=== PATIENT | male | born 1940 | race Caucasian/White ===

== ENCOUNTER 2023-01-22 14:50 | Emergency (ER) | payer MEDICARE ==
[~2023-01-22] VITALS: Ht 172.7 cm; Wt 72.6 kg
[2023-01-22 14:56] VITALS: BP_SYST 131
[2023-01-22] MEDS ORDERED: guaiFENesin/DEXTROMETHORPHAN 10 ML UDC PO ONE (15:00)
[2023-01-22 15:34] LABS: BASOPHILS % (AUTO) 0.2 % (0.0-2.0); HEMATOCRIT 41.8 % (36-54); HEMOGLOBIN 14.1 g/dL (14.0-18.0); LYMPHOCYTES # (AUTO) 0.3 K/uL (1.0-5.5); MEAN CORPUSCULAR HEMOGLOBIN 29 pg (27-31); MEAN CORPUSCULAR HGB CONC 34 % (32-36); MEAN CORPUSCULAR VOLUME 87 fL (79.0-98.0); MONOCYTES # (AUTO) 0.4 K/uL (0.0-1.0); MONOCYTES % (AUTO) 9.2 % (1.7-9.3); NEUTROPHILS # (AUTO) 3.2 K/uL (1.8-7.7); NEUTROPHILS % (AUTO) 82.6 % (40.0-70.0); PLATELET COUNT (AUTO) 114 K/uL (130-430); RED CELL DISTRIBUTION WIDTH 13.1 % (9.0-15.0); WHITE BLOOD COUNT (AUTO) 3.9 K/uL (4.8-10.8)
[2023-01-22 15:41] LABS: ANION GAP 5 (5-15); CALCIUM 7.8 mg/dL (8.4-11.0); CHLORIDE 96 mmol/L (98-107); GLUCOSE 124 mg/dL (70-99); UREA NITROGEN, BLOOD 13 mg/dL (8-21)
[2023-01-22 15:54] LABS: ALANINE AMINOTRANSFERASE 22 U/L (12-78); ALBUMIN 3.2 g/dL (3.4-4.8); ASPARTATE AMINOTRANSFERASE 24 U/L (10-37); FREE T4 (FREE THYROXINE) 1.1 ng/dL (0.6-1.6); THYROID STIMULATING HORMONE 0.62 uIu/mL (0.34-4.82); TOTAL BILIRUBIN 0.5 mg/dL (0.0-1.0)
[2023-01-22] MEDS ORDERED: NACL 0.9% 1,000 ML IV ONE (18:15)
[2023-01-22 18:51] LABS: BILIRUBIN,URINE NEGATIVE (NEGATIVE); BLOOD, URINE 1+ (NEGATIVE); CLARITY/URINE CLEAR (CLEAR); COLOR,URINE YELLOW (YELLOW); GLUCOSE,URINE NEGATIVE (NEGATIVE); KETONES,URINE 1+ (NEGATIVE); LEUKOCYTE ESTERASE ,URINE NEGATIVE (NEGATIVE); NITRITE, URINE NEGATIVE (NEGATIVE); PROTEIN URINE NEGATIVE (NEGATIVE); UROBILINOGEN,URINE 0.2 (0.2-1.0)
[2023-01-22 19:22] LABS: BACTERIA,URINE RARE /HPF (None Seen); MUCUS,URINE None Seen /LPF (None Seen); WBC,URINE 0-3 /HPF (0-3)
[2023-01-22] MEDS ORDERED: ACETAMINOPHEN 325 MG TABLET PO ONE (19:45)
[2023-01-22] MEDS ORDERED: BENZONATATE 100 MG CAPSULE (TESSALON) PO ONE (19:45)
[2023-01-22] MEDS ORDERED: AZITHROMYCIN 250 MG TABLET PO ONE (19:45)
[2023-01-22] MEDS ORDERED: BENZ100C92 PO (19:55)
[2023-01-22] MEDS ORDERED: ZIT250 PO (19:55)
[2023-01-22] MEDS ORDERED: IBUP-1969 PO (19:55)
[2023-01-22 20:12] VITALS: BP_SYST 132
== END 2023-01-22 20:10 | disposition home or self-care (01) ==
LOC: SED 14:50
DX: J40 Bronchitis, not specified as acute or chronic (principal); E87.1 Hypo-osmolality and hyponatremia; N17.9 Acute kidney failure, unspecified; R50.9 Fever, unspecified; R05.9 Cough, unspecified; Z79.899 Other long term (current) drug therapy; Z20.822 Contact with and (suspected) exposure to COVID-19
CPT/HCPCS: 99285; 96360; 71045; 87426; 80053; 81000; 84439; 83735; 84443; 85025; 87040; 84484; 36415; 93005; 83605; 87804 ×2; J7030; Q0144